=== PATIENT | male | born 1970 | race Hispanic/Latino ===

== ENCOUNTER 2024-06-17 02:13 | Emergency (ER) | payer OTHER, SELFPAY ==
[2024-06-17 02:18] VITALS: BP 107/65
[2024-06-17 02:33] VITALS: BMI 30.1
--- NOTE | 2024-06-17 03:48 | ED.GENMED ---
History of Present Illness
General
Chief Complaint: Head Injury
Source: patient and family ( and son present at the bedside)
Time Seen by Provider: 06/17/24 02:53
History of Present Illness
History of Present Illness:
Pleasant 54-year-old male presents with laceration to his right anterior head. Proximally 6 cm laceration was sustained by hitting the corner of a wall while intoxicated. Patient admits to 'drinking too much this evening '. His son states that he
got up and hit his head on the corner of the wall. Denies loss of consciousness. Bleeding was stopped with direct pressure. Last tetanus is unknown. Patient has no neck pain or other complaints but admits to being intoxicated.
Past History
Past History
ED Past Medical History: None
ED Past Surgical History: None
Social History
Tobacco: Non-smoker
Alcohol: None
Drug: None
Phy Exam
General Physical Exam
General Presentation: well appearing
General age: appears stated age
General Skin: warm and dry
General Mental: alert
ENT Exam
ENT Exam: EOMI, TM's normal and swallowing well
Cardiovascular Exam
Cardiovascular Exam: regular rate/rhythm
Pulmonary Exam
Pulmonary Exam: lungs clear, no respiratory distress and no cough
Neurological Exam
Neurological Exam: alert and speech normal
Musculoskeletal Exam
Musculoskeletal Exam: full ROM and neuro vasc intact
Skin Exam
Skin Exam: laceration
Psychiatric Exam
Psychiatric Exam: normal mood/affect
Course
Orders/Labs/Results
Orders:
Orders
06/17/24 02:34
CT Cervical Spine W/o Iv Contr Urgent
Comment:
Reason For Exam: fall
CT Head W/o Iv Contrast Urgent
Comment:
Reason For Exam: fall
Vital Signs
Initial and Last Documented VS:
Initial Vital Signs
Temp Pulse Resp BP Pulse Ox
97.4 F 79 16 107/65 96
06/17/24 02:18 06/17/24 02:18 06/17/24 02:18 06/17/24 02:18 06/17/24 02:18
Last Documented Vital Signs
Temp Pulse Resp BP Pulse Ox
97.4 F 79 16 107/65 96
06/17/24 02:18 06/17/24 02:18 06/17/24 02:18 06/17/24 02:18 06/17/24 02:18
Procedures
Laceration Closure
Right Anterior Head:
Status of Wound: clean
Size of Wound in cm: 6
Description of Wound Edges: sharp
Preparation: cleaned with soap & water
Revision/Debridement: routine- no revision
Wound exploration: explored to base- no FB
Type of Closure: single layer closure
Skin Closure Material: skin savannah
Number of sutures: 18
*Critical Care Note
Total Time (30-74mins, 75-104mins- exclusive of procedures): Not Applicable
Update Note
Update Note:
CT head and C-spine without IV contrast
IMPRESSION:
CT HEAD: Right frontal scalp contusion/laceration, without underlying calvarial fracture or acute intracranial abnormality.
CT CERVICAL SPINE: No acute osseous trauma. Alignment intact. Craniocervical junction normal. Vertebral body heights and disc spaces are preserved. Patulous esophagus.
Finalized at 3:40 AM EST
ED Attending Note
-
Portions of this chart may have been created with voice recognition software.� Occasional wrong word or��sound alike� substitutions may have occurred due to the inherent limitations of voice recognition software.
Discharge Plan
Departure
Patient Disposition: Home (Routine Discharge)
Date of Disposition: 06/17/24
Time of Disposition: 03:51
Patient with high blood pressure during this ER visit?: Yes
Discharge Problem:
Laceration of scalp
Instructions: Laceration Repair With [place] (DC), Head Injury in Adults (DC), Wound Care (DC)
Prescriptions:
No Action
No Current Medications
0
Activity Restrictions/Additional Instructions:
savannah can be removed in approximately 7 days. A special tool is needed to remove them. Please follow-up with your primary care provider, urgent care or come back to the ER.
Your tetanus status was updated today
It was a pleasure meeting you and taking part in your care. We hope for your continued healing and wellness.
Please read discharge instructions in their entirety. However, they are for general education and may not describe your exact diagnosis at discharge. Information on your ER visit and medical conditions were discussed with you along with appropriate
follow up information...
If indicated, please take your medications as instructed and indicated on discharge paperwork.
Please schedule a follow up appointment as directed. Call to schedule an appointment
Please return to the emergency department with ANY change in, persisting, or worsening of symptoms. If any of your symptoms do not improve, or persist, or become more severe within 6-12 hours, please return to the emergency department for further
care.
Please return to the emergency department if you develop a headache, neck pain/stiffness, fever greater than 100.4F, chest pain, shortness of breath, persistent nausea, vomiting, slurred speech, difficulty walking, numbness/tingling, weakness, signs
of infection or any other symptoms that are worrisome to you.
If you have any questions or concerns please do not hesitate to call the Hospital at or E-mail me directly at [email or web address]
Interventions
Interventions:
*Risk Screen - Suicide Last Done: 06/17/24 02:14
*General Assessment Last Done: 06/17/24 02:37
*Neglect/Abuse Screening Last Done: 06/17/24 02:14
*ED COVID-19 Vaccine History Last Done: 06/17/24 02:37
ED- Neurological Assessment Last Done: 06/17/24 02:35
ED-Skin Assessment Last Done: 06/17/24 02:35
Discharge Date and Time
Print Language: PAKISTANI
[2024-06-17] MEDS: ADACEL 0.5 ML IM (03:59)
== END 2024-06-17 04:11 | disposition home or self-care (01) ==
LOC: EMR 02:13
PROVIDERS: EMERGENCY PHYSICIAN Student in an Organized Health Care Education/Training Program
DX: S01.01XA Laceration without foreign body of scalp, initial encounter (principal); W22.01XA Walked into wall, initial encounter; Z23 Encounter for immunization
CPT/HCPCS: 12002; 90471; 99284; 70450; 72125; 90715